=== PATIENT | female | born 1960 | race Caucasian/White ===

== ENCOUNTER 2019-09-15 11:11 | Inpatient (IN) | payer MEDICAID ==
[~2019-09-15] VITALS: Ht 175.3 cm; Wt 76.7 kg
--- NOTE | 2019-09-15 11:31 | NUR ---
Pt pushed from triage to room in wheelchair.
--- NOTE | 2019-09-15 11:48 | NUR ---
Pt transported [facility] from ED. NADN. No needs expressed.
--- NOTE | 2019-09-15 11:53 | NUR ---
LATE NOTE ENTRY DUE TO PT CARE. Pt presents to ED with c/o left hip pain from known fracture that was diagnosed on 08/20/19 at [facility] after pt fell off curb at a [employer] and had a mechanical GLF. Pt states, "I didn't have health insurance until September 15. I have been using this walker I got five days ago and been taking Ibuprofen for the pain. I am scheduled for surgery on September 29 and I want to see how it is doing now." Pt placed in yellow gown, yellow socks, fall risk braclet, and fall risk sign at doorway. Bedrails up x 2, call light within reach. Pt connected to NIBP cuff and continous pulse ox monitor. NADN. No other needs expressed at this time.
--- NOTE | 2019-09-15 11:58 | NUR ---
Pt back to room from X-ray at this time.
--- NOTE | 2019-09-15 12:48 | NUR ---
dr duarte spoke with dr trevino with ortho
[2019-09-15] MEDS ORDERED: SODIUM CHLORIDE FLUSH 10ML SYR IVF ONE (13:00)
[2019-09-15] MEDS ORDERED: PRO AIR (13:16)
[2019-09-15 13:26] LABS: BASOPHILS # (AUTO) 0.05 x10^3/uL (0-0.1); BASOPHILS % (AUTO) 1 % (0-1); EOSINOPHILS # (AUTO) 0.36 x10^3/uL (0-0.4); EOSINOPHILS % (AUTO) 5 % (1-7); LYMPHOCYTES # (AUTO) 1.93 x10^3/uL (1-3.4); LYMPHOCYTES % (AUTO) 27 % (22-44); MD NO; MEAN CORPUSCULAR HEMOGLOBIN 29.3 pg (27.0-34.8); MEAN CORPUSCULAR HGB CONC 33.2 g/dL (32.4-35.8); MEAN CORPUSCULAR VOLUME 88.2 fL (80-100); MEAN PLATELET VOLUME 8.3 fL (7.4-10.4); MONOCYTES # (AUTO) 0.34 x10^3/uL (0.2-0.8); MONOCYTES % (AUTO) 5 % (2-9); NEUTROPHILS % (AUTO) 62 % (42-75); PLATELET COUNT 269 x10^3/uL (130-400); RED BLOOD COUNT 5.12 x10^6/uL (3.82-5.3); RED CELL DISTRIBUTION WIDTH 12.3 % (9.6-15.2)
[2019-09-15 13:37] LABS: ALBUMIN 3.7 g/dL (3.4-5.0); ANION GAP 3 mmol/L (5-15); CALCIUM 9.4 mg/dL (8.5-10.1); CHLORIDE 108 mmol/L (98-107); CREATININE 0.62 mg/dL (0.55-1.02); INTERNATIONAL NORMALIZED RATIO 0.99 (0.93-1.1); PROTHROMBIN TIME 10.4 Seconds (9.6-11.5)
[2019-09-15] MEDS ORDERED: SODIUM CHLORIDE FLUSH 10ML SYR IVF PRN (15:00)
[2019-09-15] MEDS ORDERED: ACETAMINOPHEN 325 MG TABLET PO PRN (15:00)
[2019-09-15] MEDS ORDERED: IBUPROFEN 600 MG TABLET PO PRN (15:00)
[2019-09-15] MEDS ORDERED: LIDODERM 5% PATCH TD PRN (15:00)
[2019-09-15] MEDS ORDERED: ONDANSETRON 2MG/ML, 2ML IVPush PRN (15:00)
[2019-09-15] MEDS ORDERED: ONDANSETRON ODT 4 MG PO PRN (15:00)
--- NOTE | 2019-09-15 15:20 | NUR ---
Provided report to LIZET Gutierrez. All questions answered. Pt ready to transfer to floor from ED. NADN. No needs expressed.
[2019-09-15 15:45] VITALS: BP 127/73
[2019-09-15] MEDS ORDERED: ALBUTEROL SULFATE 2.5 MG/3 ML NPPB PRN (16:00)
[2019-09-15] MEDS: INSULIN LISPRO 100 UNITS/ML, PEN SQ-INSULIN SCH ×2 (16:00→20:32)
--- NOTE | 2019-09-15 16:23 | NUR ---
Pt transfered to floor from ED and left with all personal belongings.
[2019-09-15] MEDS: HYDROcodone/APAP 5/325 TABLET PO PRN ×2 (16:43→21:44)
[2019-09-15] MEDS: NICOTINE 14MG/24 HR PATCH.TD24 TD SCH (16:43)
[2019-09-15 17:21] LABS: MICROSCOPIC NOT IND
[2019-09-15 17:29] LABS: CULTURE INDICATED? NO
[2019-09-15 17:30] LABS: AMPHETAMINE SCREEN, URINE Negative (Negative); BARBITURATE SCREEN, URINE Negative (Negative); BENZODIAZEPINE SCREEN, URINE Negative (Negative); CANNABINOID SCREEN, URINE Negative (Negative); COCAINE SCREEN, URINE Negative (Negative); METHADONE SCREEN, URINE Negative (Negative); OPIATE SCREEN, URINE Negative (Negative)
[2019-09-15 19:42] VITALS: BP 121/69
[2019-09-16 01:15] VITALS: BP 138/86
[2019-09-16] MEDS: HYDROcodone/APAP 5/325 TABLET PO PRN ×3 (02:01→13:00)
[2019-09-16 05:03] LABS: BASOPHILS # (AUTO) 0.05 x10^3/uL (0-0.1); BASOPHILS % (AUTO) 1 % (0-1); EOSINOPHILS # (AUTO) 0.44 x10^3/uL (0-0.4); EOSINOPHILS % (AUTO) 7 % (1-7); LYMPHOCYTES # (AUTO) 2.61 x10^3/uL (1-3.4); LYMPHOCYTES % (AUTO) 41 % (22-44); MD NO; MEAN CORPUSCULAR HEMOGLOBIN 29.6 pg (27.0-34.8); MEAN CORPUSCULAR HGB CONC 33.1 g/dL (32.4-35.8); MEAN CORPUSCULAR VOLUME 89.4 fL (80-100); MEAN PLATELET VOLUME 8.4 fL (7.4-10.4); MONOCYTES # (AUTO) 0.46 x10^3/uL (0.2-0.8); MONOCYTES % (AUTO) 7 % (2-9); NEUTROPHILS # (AUTO) 2.85 x10^3/uL (1.8-6.8); NEUTROPHILS % (AUTO) 45 % (42-75); PLATELET COUNT 256 x10^3/uL (130-400); RED BLOOD COUNT 4.86 x10^6/uL (3.82-5.3); RED CELL DISTRIBUTION WIDTH 12.6 % (9.6-15.2)
[2019-09-16 05:16] LABS: ANION GAP 7 mmol/L (5-15); CHLORIDE 105 mmol/L (98-107); CREATININE 0.67 mg/dL (0.55-1.02)
[2019-09-16 06:53] VITALS: BP 124/72
[2019-09-16] MEDS: INSULIN LISPRO 100 UNITS/ML, PEN SQ-INSULIN SCH ×4 (07:00→21:00)
[2019-09-16 13:08] VITALS: BP 113/64
[2019-09-16] MEDS: NICOTINE 14MG/24 HR PATCH.TD24 TD SCH (14:57)
[2019-09-16] MEDS ORDERED: PROPOFOL 50 ML ONE (17:38)
[2019-09-16] MEDS ORDERED: FENTANYL PF 250 MCG/5ML ONE (17:40)
[2019-09-16] MEDS ORDERED: MIDAZOLAM 1 MG/ML, 2ML ONE (17:41)
[2019-09-16] MEDS ORDERED: SUCCINYLCHOLINE 20 MG/ML, 10ML ONE (18:35)
[2019-09-16] MEDS ORDERED: DEXAMETHASONE 4 MG/ML, 1ML ONE (18:35)
[2019-09-16] MEDS ORDERED: NEOSTIGMINE 1 MG/ML, 10ML ONE (18:35)
[2019-09-16] MEDS ORDERED: GLYCOPYRROLATE 0.2MG/1ML, 5ML ONE (18:35)
[2019-09-16] MEDS ORDERED: ROCURONIUM 10 MG/ML,10ML ONE (18:35)
[2019-09-16] MEDS ORDERED: CEFAZOLIN 1,000 MG ONE (18:35)
[2019-09-16] MEDS ORDERED: ONDANSETRON 2MG/ML, 2ML ONE (18:35)
[2019-09-16] MEDS ORDERED: FENTANYL PF 100 MCG/2ML ONE (19:17)
[2019-09-16] MEDS ORDERED: ALBUTEROL/IPRATROPIUM 2.5MG/0.5MG, 3 ML ONE (19:17)
[2019-09-16] MEDS: FENTANYL PF 100 MCG/2ML IV PRN ×3 (19:24→20:10)
[2019-09-16] MEDS ORDERED: OXYcodone 5 MG/5 ML ORAL.SOL UDC ONE (19:25)
[2019-09-16] MEDS ORDERED: HYDROmorphone 2 MG/ML, 1ML IVPush PRN (19:30)
[2019-09-16] MEDS ORDERED: METOCLOPRAMIDE 5 MG/ML, 2ML IV PRN (19:30)
[2019-09-16] MEDS ORDERED: hydrALAzine 20 MG/ML, 1ML IV PRN (19:30)
[2019-09-16] MEDS ORDERED: MEPERIDINE/PF 25MG/ML,1ML IVPush PRN (19:30)
[2019-09-16] MEDS ORDERED: DIAZEPAM 5 MG/ML, 2ML IVPush PRN (19:30)
[2019-09-16] MEDS ORDERED: ONDANSETRON 2MG/ML, 2ML IV PRN (19:30)
[2019-09-16] MEDS ORDERED: LABETALOL 5MG/ML, 20ML IV PRN (19:30)
[2019-09-16] MEDS ORDERED: OXYcodone 5 MG/5 ML ORAL.SOL UDC PO PRN (19:30)
[2019-09-16] MEDS ORDERED: LORazepam 2 MG/ML, 1ML IVPush PRN (19:30)
[2019-09-16 20:35] VITALS: BP 136/62
[2019-09-16] MEDS: KETOROLAC 30 MG/1 ML IV SCH (21:58)
[2019-09-17 00:15] VITALS: BP 120/69
[2019-09-17] MEDS: HYDROcodone/APAP 5/325 TABLET PO PRN ×4 (02:15→20:53)
[2019-09-17] MEDS: CEFAZOLIN PMX 1GM/50ML 50 ML IVPB SCH ×3 (05:02→20:03)
[2019-09-17] MEDS: KETOROLAC 30 MG/1 ML IV SCH ×2 (05:05→12:07)
[2019-09-17] MEDS: INSULIN LISPRO 100 UNITS/ML, PEN SQ-INSULIN SCH ×4 (07:00→20:19)
[2019-09-17 08:15] VITALS: BP 110/68
[2019-09-17] MEDS: ENOXAPARIN 40 MG/0.4 ML SQ SCH (09:54)
[2019-09-17] MEDS ORDERED: POLYETHYLENE GLYCOL 17 GM PACKET PO PRN (10:00)
[2019-09-17] MEDS: NICOTINE 14MG/24 HR PATCH.TD24 TD SCH (12:08)
[2019-09-17 12:10] VITALS: BP 125/70
[2019-09-17] MEDS ORDERED: MAGNESIUM HYDROXIDE 8%, 30ML UDC PO PRN (17:00)
[2019-09-17 18:44] VITALS: BP 120/48
[2019-09-18 00:43] VITALS: BP 128/69
[2019-09-18] MEDS: HYDROcodone/APAP 5/325 TABLET PO PRN ×2 (01:41→11:38)
[2019-09-18 05:05] LABS: BASOPHILS # (AUTO) 0.04 x10^3/uL (0-0.1); BASOPHILS % (AUTO) 1 % (0-1); EOSINOPHILS # (AUTO) 0.19 x10^3/uL (0-0.4); EOSINOPHILS % (AUTO) 3 % (1-7); LYMPHOCYTES % (AUTO) 39 % (22-44); MD NO; MEAN CORPUSCULAR HEMOGLOBIN 29.2 pg (27.0-34.8); MEAN CORPUSCULAR HGB CONC 33.1 g/dL (32.4-35.8); MEAN CORPUSCULAR VOLUME 88.4 fL (80-100); MEAN PLATELET VOLUME 8.5 fL (7.4-10.4); MONOCYTES % (AUTO) 7 % (2-9); NEUTROPHILS # (AUTO) 3.79 x10^3/uL (1.8-6.8); NEUTROPHILS % (AUTO) 51 % (42-75); PLATELET COUNT 229 x10^3/uL (130-400); RED BLOOD COUNT 4.56 x10^6/uL (3.82-5.3); RED CELL DISTRIBUTION WIDTH 12.2 % (9.6-15.2)
[2019-09-18 05:15] LABS: CALCIUM 8.8 mg/dL (8.5-10.1); CHLORIDE 105 mmol/L (98-107)
[2019-09-18 05:19] LABS: ANION GAP 4 mmol/L (5-15); CREATININE 0.81 mg/dL (0.55-1.02)
[2019-09-18] MEDS: INSULIN LISPRO 100 UNITS/ML, PEN SQ-INSULIN SCH ×2 (07:00→11:00)
[2019-09-18 07:17] VITALS: BP 116/68
[2019-09-18] MEDS: ENOXAPARIN 40 MG/0.4 ML SQ SCH (08:08)
[2019-09-18] MEDS ORDERED: KETOROLAC 30 MG/1 ML IVPush ONE (08:30)
[2019-09-18] MEDS ORDERED: HYDR-3237 PO (10:46)
[2019-09-18] MEDS: NICOTINE 14MG/24 HR PATCH.TD24 TD SCH (11:38)
[2019-09-18] MEDS ORDERED: ASPI-650 PO (11:46)
[2019-09-18] MEDS ORDERED: FLU VACC QS2019-20 36MOS UP/PF 0.5 ML IM-VACC ONE (12:30)
[2019-09-18] MEDS ORDERED: ASPI-515 PO (12:38)
[2019-09-18] MEDS ORDERED: HYDR-3240 PO (12:40)
== END 2019-09-18 13:00 | disposition home or self-care (01) | DRG 482 ==
LOC: ED 13:50 → EDIP 14:45 → 4NE 15:41 → DCLOUNGE 09-18 12:44
PROVIDERS: ADMIT Internal Medicine; ATTEND Hospitalist
PROC: 0QS734Z Reposition Left Upper Femur with Internal Fixation Device, Percutaneous Approach (ICD-10-PCS; principal; 2019-09-16 17:30)
DX: S72.012A Unspecified intracapsular fracture of left femur, initial encounter for closed fracture (principal); E11.9 Type 2 diabetes mellitus without complications; I10 Essential (primary) hypertension; K21.9 Gastro-esophageal reflux disease without esophagitis; J44.9 Chronic obstructive pulmonary disease, unspecified; W18.30XA Fall on same level, unspecified, initial encounter; Y93.89 Activity, other specified; Y92.89 Other specified places as the place of occurrence of the external cause; Y99.8 Other external cause status
CPT/HCPCS: 36415; 71045; 76000; 80048; 80307; 81003; 82040; 82962; 83036; 84443; 85025; 85610; 85730; 90686; 93005; 94640; 99285; C1713; G0378; J0690; J1100; J1650; J1885; J2250; J2405; J2704; J2710; J3010; J0330

== ENCOUNTER 2019-09-24 06:42 | Emergency (ER) | payer MEDICAID ==
[~2019-09-24] VITALS: Ht 175.3 cm; Wt 76.7 kg
[~2019-09-24 06:42] MED LIST: ASPI-515 PO; ASPI-650 PO; HYDR-3237 PO; HYDR-3240 PO; PRO AIR
[2019-09-24 07:21] LABS: BASOPHILS # (AUTO) 0.01 x10^3/uL (0-0.1); BASOPHILS % (AUTO) 0 % (0-1); EOSINOPHILS # (AUTO) 0.21 x10^3/uL (0-0.4); EOSINOPHILS % (AUTO) 5 % (1-7); LYMPHOCYTES # (AUTO) 0.67 x10^3/uL (1-3.4); LYMPHOCYTES % (AUTO) 16 % (22-44); MD NO; MEAN CORPUSCULAR HEMOGLOBIN 29.5 pg (27.0-34.8); MEAN CORPUSCULAR HGB CONC 33.7 g/dL (32.4-35.8); MEAN CORPUSCULAR VOLUME 87.3 fL (80-100); MEAN PLATELET VOLUME 7.9 fL (7.4-10.4); MONOCYTES # (AUTO) 0.21 x10^3/uL (0.2-0.8); MONOCYTES % (AUTO) 5 % (2-9); NEUTROPHILS # (AUTO) 3.21 x10^3/uL (1.8-6.8); NEUTROPHILS % (AUTO) 75 % (42-75); PLATELET COUNT 218 x10^3/uL (130-400); RED BLOOD COUNT 4.94 x10^6/uL (3.82-5.3); RED CELL DISTRIBUTION WIDTH 12.4 % (9.6-15.2)
[2019-09-24] MEDS ORDERED: BENZONATATE 100 MG CAPSULE PO ONE (07:30)
[2019-09-24 07:32] LABS: ALBUMIN 3.3 g/dL (3.4-5.0); ANION GAP 5 mmol/L (5-15); CALCIUM 8.8 mg/dL (8.5-10.1); CHLORIDE 106 mmol/L (98-107); CREATININE 0.58 mg/dL (0.55-1.02)
[2019-09-24 07:36] LABS: TROPONIN I < 0.015 ng/mL (0.000-0.045)
[2019-09-24] MEDS ORDERED: BENZONATATE 100 MG CAPSULE ONE (07:55)
--- NOTE | 2019-09-24 07:57 | NUR ---
Medicated per emar VSS on awake overnight monitor No coughing noted since time of rooming
[2019-09-24] MEDS ORDERED: METF10007 PO (08:01)
[2019-09-24 08:05] LABS: RAPID INFLUENZA A Negative (Negative); RAPID INFLUENZA B Negative (Negative)
[2019-09-24 08:22] VITALS: BP 123/63
--- NOTE | 2019-09-24 08:40 | NUR ---
vss on registered nurse cardiac Tolerated po challenge of liquids/solids Lungs sounds remain deminished but Patient reports "I feel a little better. as long as you send me with some prescriptions for a new inhaler and more steroids I should get through this."
== END 2019-09-24 09:06 | disposition home or self-care (01) ==
LOC: ED 08:11
DX: J44.1 Chronic obstructive pulmonary disease with (acute) exacerbation (principal); J06.9 Acute upper respiratory infection, unspecified; F17.200 Nicotine dependence, unspecified, uncomplicated
CPT/HCPCS: 36415; 71045; 80048; 82040; 84484; 85025; 87400; 93005; 99284; J7512

== ENCOUNTER 2019-10-11 11:57 | Emergency (ER) | payer MEDICAID ==
[~2019-10-11] VITALS: Ht 175.3 cm; Wt 73.0 kg
[~2019-10-11 11:57] MED LIST changes: +METF10007 PO
[2019-10-11 12:10] VITALS: BP 165/66
[2019-10-11] MEDS ORDERED: NEOSPORIN OINT. PKT 1 PACKET ONE (13:04)
== END 2019-10-11 13:33 | disposition home or self-care (01) ==
LOC: ED 13:21
DX: L03.114 Cellulitis of left upper limb (principal); B35.3 Tinea pedis; E11.9 Type 2 diabetes mellitus without complications
CPT/HCPCS: 99283

== ENCOUNTER 2020-02-09 13:47 | Inpatient (IN) | payer MEDICAID ==
[~2020-02-09] VITALS: Ht 175.3 cm; Wt 80.6 kg
--- NOTE | 2020-02-09 14:35 | NUR ---
EDUCATIONAL THERAPIST: PT TO ROOM FROM [facility].
[2020-02-09] MEDS ORDERED: CEFTRIAXONE PMX 1GM/50ML 50 ML ONE (15:24)
[2020-02-09] MEDS ORDERED: SODIUM CHLORIDE FLUSH 10ML SYR IVF ONE ×2 (15:30→17:30)
[2020-02-09] MEDS ORDERED: CEFTRIAXONE 1,000 MG in SODIUM CHLORIDE 0.9% 50 ML IVPB ONE (15:30)
[2020-02-09] MEDS ORDERED: CEFTRIAXONE PMX 1GM/50ML 50 ML IVPB ONE (15:30)
[2020-02-09] MEDS ORDERED: ONDANSETRON 2MG/ML, 2ML ONE (15:37)
[2020-02-09] MEDS ORDERED: HYDROmorphone 1 MG/ML, 1ML INJ ONE (15:37)
[2020-02-09 15:52] LABS: ALBUMIN 3.2 g/dL (3.4-5.0); ANION GAP 7 mmol/L (5-15); CALCIUM 9.2 mg/dL (8.5-10.1); CHLORIDE 101 mmol/L (98-107); CREATININE 0.69 mg/dL (0.55-1.02)
--- NOTE | 2020-02-09 16:00 | NUR ---
PT RESTING WITH EYES CLOSED. MONITOR IN PLACE.
[2020-02-09 16:02] LABS: BASOPHILS # (AUTO) 0.04 x10^3/uL (0-0.1); BASOPHILS % (AUTO) 0 % (0-1); EOSINOPHILS # (AUTO) 0.14 x10^3/uL (0-0.4); EOSINOPHILS % (AUTO) 1 % (1-7); LYMPHOCYTES # (AUTO) 1.48 x10^3/uL (1-3.4); LYMPHOCYTES % (AUTO) 12 % (22-44); MD NO; MEAN CORPUSCULAR HGB CONC 33.6 g/dL (32.4-35.8); MEAN CORPUSCULAR VOLUME 86.2 fL (80-100); MEAN PLATELET VOLUME 8.7 fL (7.4-10.4); MONOCYTES # (AUTO) 0.99 x10^3/uL (0.2-0.8); MONOCYTES % (AUTO) 8 % (2-9); NEUTROPHILS # (AUTO) 9.68 x10^3/uL (1.8-6.8); NEUTROPHILS % (AUTO) 79 % (42-75); PLATELET COUNT 260 x10^3/uL (130-400); RED BLOOD COUNT 4.48 x10^6/uL (3.82-5.3)
[2020-02-09] MEDS ORDERED: OMNIPAQUE 350 MG/ML, 100ML BOTTLE ONE (16:52)
[2020-02-09] MEDS ORDERED: SODIUM CHLORIDE FLUSH 10ML SYR IVF PRN (17:30)
[2020-02-09] MEDS ORDERED: VANCOMYCIN PER PHARMACY MC PRN (18:00)
[2020-02-09] MEDS ORDERED: ONDANSETRON ODT 4 MG PO PRN (18:00)
[2020-02-09] MEDS ORDERED: POLYETHYLENE GLYCOL 17 GM PACKET PO PRN (18:00)
[2020-02-09] MEDS ORDERED: BISACODYL 10 MG SUPP PR PRN (18:00)
[2020-02-09] MEDS: HEPARIN 5,000 UNITS/ML, 1ML SQ SCH (18:00)
[2020-02-09] MEDS ORDERED: PHARMACOKINETIC CONSULTATION MC ONE (19:30)
[2020-02-09] MEDS ORDERED: PHARMACOKINETIC MONITORING MC PRN (19:30)
[2020-02-09] MEDS: ASPIRIN 81 MG TABLET EC PO SCH (20:31)
[2020-02-09] MEDS: NICOTINE 21 MG/24 HR PATCH.TD24 TD SCH (20:31)
[2020-02-09] MEDS: PIPERACILLIN/TAZO/PMX 3.375GM 50 ML IV SCH (20:31)
[2020-02-09] MEDS: metFORMIN 500 MG TABLET PO SCH (20:31)
[2020-02-09 20:40] VITALS: BP 127/64
[2020-02-09] MEDS: VANCOMYCIN 1,300 MG in SODIUM CHLORIDE 0.9% 250 ML IV SCH (21:14)
[2020-02-09] MEDS: KETOROLAC 30 MG/1 ML IVPush PRN (22:39)
[2020-02-09] MEDS: NS + 20MEQ KCL 1,000 ML IV SCH (23:48)
[2020-02-10 00:21] VITALS: BP 136/79
[2020-02-10] MEDS: HEPARIN 5,000 UNITS/ML, 1ML SQ SCH ×3 (02:00→17:25)
[2020-02-10] MEDS: PIPERACILLIN/TAZO/PMX 3.375GM 50 ML IV SCH ×4 (02:00→20:30)
[2020-02-10 05:42] LABS: BASOPHILS # (AUTO) 0.03 x10^3/uL (0-0.1); BASOPHILS % (AUTO) 0 % (0-1); EOSINOPHILS # (AUTO) 0.26 x10^3/uL (0-0.4); EOSINOPHILS % (AUTO) 2 % (1-7); LYMPHOCYTES # (AUTO) 1.39 x10^3/uL (1-3.4); LYMPHOCYTES % (AUTO) 12 % (22-44); MD NO; MEAN CORPUSCULAR HEMOGLOBIN 28.6 pg (27.0-34.8); MEAN CORPUSCULAR HGB CONC 32.9 g/dL (32.4-35.8); MEAN CORPUSCULAR VOLUME 86.8 fL (80-100); MEAN PLATELET VOLUME 8.7 fL (7.4-10.4); MONOCYTES # (AUTO) 0.94 x10^3/uL (0.2-0.8); MONOCYTES % (AUTO) 8 % (2-9); NEUTROPHILS # (AUTO) 8.73 x10^3/uL (1.8-6.8); NEUTROPHILS % (AUTO) 77 % (42-75); PLATELET COUNT 233 x10^3/uL (130-400); RED BLOOD COUNT 3.97 x10^6/uL (3.82-5.3); RED CELL DISTRIBUTION WIDTH 12.7 % (9.6-15.2)
[2020-02-10 05:51] LABS: ANION GAP 9 mmol/L (5-15); CALCIUM 8.6 mg/dL (8.5-10.1); CHLORIDE 102 mmol/L (98-107)
[2020-02-10] MEDS: KETOROLAC 30 MG/1 ML IVPush PRN ×3 (06:16→21:48)
[2020-02-10] MEDS: SENNA/DOCUSATE TABLET PO SCH (07:58)
[2020-02-10] MEDS: metFORMIN 500 MG TABLET PO SCH ×2 (07:58→17:23)
[2020-02-10] MEDS: ASPIRIN 81 MG TABLET EC PO SCH ×2 (07:58→20:30)
[2020-02-10 09:22] VITALS: BP 139/73
[2020-02-10] MEDS: NS + 20MEQ KCL 1,000 ML IV SCH ×2 (12:00→19:42)
[2020-02-10 13:35] VITALS: BP 122/75
[2020-02-10 13:42] LABS: AMPHETAMINE SCREEN, URINE Positive (Negative); BARBITURATE SCREEN, URINE Negative (Negative); BENZODIAZEPINE SCREEN, URINE Negative (Negative); CANNABINOID SCREEN, URINE Negative (Negative); COCAINE SCREEN, URINE Negative (Negative); METHADONE SCREEN, URINE Negative (Negative); OPIATE SCREEN, URINE Negative (Negative)
[2020-02-10] MEDS: VANCOMYCIN 1,300 MG in SODIUM CHLORIDE 0.9% 250 ML IV SCH (15:21)
[2020-02-10] MEDS: ACETAMINOPHEN 325 MG TABLET PO PRN ×2 (17:23→23:19)
[2020-02-10] MEDS: NICOTINE 21 MG/24 HR PATCH.TD24 TD SCH (20:30)
[2020-02-10 20:33] VITALS: BP 107/55
[2020-02-11] MEDS: HEPARIN 5,000 UNITS/ML, 1ML SQ SCH ×3 (01:29→17:07)
[2020-02-11] MEDS: PIPERACILLIN/TAZO/PMX 3.375GM 50 ML IV SCH ×4 (02:34→20:37)
[2020-02-11] MEDS: KETOROLAC 30 MG/1 ML IVPush PRN (03:10)
[2020-02-11 04:27] LABS: BASOPHILS # (AUTO) 0.04 x10^3/uL (0-0.1); BASOPHILS % (AUTO) 0 % (0-1); EOSINOPHILS # (AUTO) 0.31 x10^3/uL (0-0.4); EOSINOPHILS % (AUTO) 3 % (1-7); LYMPHOCYTES # (AUTO) 1.99 x10^3/uL (1-3.4); LYMPHOCYTES % (AUTO) 21 % (22-44); MD NO; MEAN CORPUSCULAR HEMOGLOBIN 28.7 pg (27.0-34.8); MEAN CORPUSCULAR VOLUME 86.8 fL (80-100); MEAN PLATELET VOLUME 8.6 fL (7.4-10.4); MONOCYTES # (AUTO) 0.69 x10^3/uL (0.2-0.8); MONOCYTES % (AUTO) 7 % (2-9); NEUTROPHILS # (AUTO) 6.39 x10^3/uL (1.8-6.8); NEUTROPHILS % (AUTO) 68 % (42-75); PLATELET COUNT 268 x10^3/uL (130-400); RED CELL DISTRIBUTION WIDTH 13.1 % (9.6-15.2)
[2020-02-11 04:34] LABS: ANION GAP 7 mmol/L (5-15); CALCIUM 8.6 mg/dL (8.5-10.1); CHLORIDE 109 mmol/L (98-107); CREATININE 0.66 mg/dL (0.55-1.02)
[2020-02-11 05:01] LABS: HCT (SEDRATE) 35.6 % (34.6-47.8)
[2020-02-11] MEDS: NS + 20MEQ KCL 1,000 ML IV SCH ×2 (05:14→16:51)
[2020-02-11] MEDS: metFORMIN 500 MG TABLET PO SCH ×2 (07:50→17:06)
[2020-02-11] MEDS: SENNA/DOCUSATE TABLET PO SCH (07:51)
[2020-02-11] MEDS: ASPIRIN 81 MG TABLET EC PO SCH ×2 (07:51→20:37)
[2020-02-11 08:05] VITALS: BP 132/72
[2020-02-11] MEDS: VANCOMYCIN 1,300 MG in SODIUM CHLORIDE 0.9% 250 ML IV SCH (09:37)
[2020-02-11] MEDS ORDERED: FENTANYL PF 100 MCG/2ML ONE ×4 (12:11→15:07)
[2020-02-11] MEDS ORDERED: MUPIROCIN OINT 2%, 22GM ONE (12:43)
[2020-02-11] MEDS ORDERED: CHLORHEXIDINE 15 ML UDC ONE (12:43)
[2020-02-11] MEDS ORDERED: LIDOCAINE 1%-EPI 1:100K, 20ML ONE (12:44)
[2020-02-11] MEDS ORDERED: CHLORHEXIDINE 15 ML UDC MM STA (12:53)
[2020-02-11] MEDS ORDERED: ROCURONIUM 10 MG/ML,10ML ONE (13:27)
[2020-02-11] MEDS ORDERED: SUCCINYLCHOLINE 20 MG/ML, 10ML ONE (13:27)
[2020-02-11] MEDS ORDERED: ONDANSETRON 2MG/ML, 2ML ONE (13:58)
[2020-02-11] MEDS ORDERED: PROPOFOL 10 MG/ML, 20ML ONE (13:58)
[2020-02-11] MEDS ORDERED: DEXAMETHASONE 4 MG/ML, 1ML ONE (13:58)
[2020-02-11] MEDS ORDERED: LIDOCAINE-MPF 2% ,5ML ONE (13:58)
[2020-02-11] MEDS ORDERED: METOPROLOL 1 MG/ML, 5ML IV PRN (14:30)
[2020-02-11] MEDS ORDERED: PROMETHAZINE 25 MG/ML, 1ML IV PRN (14:30)
[2020-02-11] MEDS ORDERED: FENTANYL PF 100 MCG/2ML IV PRN (14:30)
[2020-02-11] MEDS ORDERED: hydrALAzine 20 MG/ML, 1ML IV PRN (14:30)
[2020-02-11] MEDS ORDERED: MEPERIDINE/PF 25MG/ML,1ML IVPush PRN (14:30)
[2020-02-11] MEDS ORDERED: HYDROmorphone 2 MG/ML, 1ML IVPush PRN (14:30)
[2020-02-11] MEDS ORDERED: ALBUTEROL SULFATE 2.5 MG/3 ML NPPB PRN (14:30)
[2020-02-11] MEDS ORDERED: ACETAMINOPHEN 325 MG TABLET PO PRN (14:30)
[2020-02-11] MEDS ORDERED: MIDAZOLAM 1 MG/ML, 2ML ONE (14:40)
[2020-02-11] MEDS ORDERED: MIDAZOLAM 1 MG/ML, 5ML ONE (15:07)
[2020-02-11] MEDS ORDERED: NEOSPORIN OINT, 15GM ONE (15:08)
[2020-02-11] MEDS: MIDAZOLAM 1 MG/ML, 2ML IV PRN ×2 (15:10→15:20)
[2020-02-11] MEDS ORDERED: OXYcodone 5 MG/5 ML ORAL.SOL UDC ONE (15:35)
[2020-02-11 16:19] VITALS: BP 157/84
[2020-02-11 18:27] VITALS: BP 143/83
[2020-02-11] MEDS: NICOTINE 21 MG/24 HR PATCH.TD24 TD SCH (20:37)
[2020-02-11] MEDS: OXYcodone 5 MG/5 ML ORAL.SOL UDC PO PRN (20:51)
[2020-02-12] MEDS: KETOROLAC 30 MG/1 ML IVPush PRN ×3 (00:06→21:06)
[2020-02-12] MEDS: NS + 20MEQ KCL 1,000 ML IV SCH (00:06)
[2020-02-12 01:02] VITALS: BP 131/68
[2020-02-12] MEDS: HEPARIN 5,000 UNITS/ML, 1ML SQ SCH ×3 (02:03→16:42)
[2020-02-12] MEDS: PIPERACILLIN/TAZO/PMX 3.375GM 50 ML IV SCH ×4 (02:38→21:07)
[2020-02-12] MEDS: VANCOMYCIN 1,300 MG in SODIUM CHLORIDE 0.9% 250 ML IV SCH (03:36)
[2020-02-12 03:57] LABS: BASOPHILS # (AUTO) 0.03 x10^3/uL (0-0.1); BASOPHILS % (AUTO) 0 % (0-1); EOSINOPHILS # (AUTO) 0.08 x10^3/uL (0-0.4); EOSINOPHILS % (AUTO) 1 % (1-7); LYMPHOCYTES # (AUTO) 1.92 x10^3/uL (1-3.4); LYMPHOCYTES % (AUTO) 20 % (22-44); MD NO; MEAN CORPUSCULAR HGB CONC 33.3 g/dL (32.4-35.8); MEAN CORPUSCULAR VOLUME 87.3 fL (80-100); MEAN PLATELET VOLUME 9.1 fL (7.4-10.4); MONOCYTES # (AUTO) 0.57 x10^3/uL (0.2-0.8); MONOCYTES % (AUTO) 6 % (2-9); NEUTROPHILS # (AUTO) 6.93 x10^3/uL (1.8-6.8); NEUTROPHILS % (AUTO) 73 % (42-75); PLATELET COUNT 285 x10^3/uL (130-400); RED CELL DISTRIBUTION WIDTH 12.7 % (9.6-15.2)
[2020-02-12 04:07] LABS: ANION GAP 7 mmol/L (5-15); CALCIUM 8.6 mg/dL (8.5-10.1); CHLORIDE 106 mmol/L (98-107); CREATININE 0.63 mg/dL (0.55-1.02)
[2020-02-12 04:08] LABS: VANCOMYCIN,TROUGH 5.9 mcg/mL (5.0-10.0)
[2020-02-12 07:28] VITALS: BP 117/64
[2020-02-12] MEDS: ASPIRIN 81 MG TABLET EC PO SCH ×2 (08:22→21:07)
[2020-02-12] MEDS: NEOSPORIN OINT, 15GM TP SCH ×2 (08:22→22:21)
[2020-02-12] MEDS: metFORMIN 500 MG TABLET PO SCH ×2 (08:22→16:42)
[2020-02-12] MEDS: SENNA/DOCUSATE TABLET PO SCH (08:22)
[2020-02-12] MEDS: MUPIROCIN OINT 2%, 22GM TP SCH ×2 (12:03→16:42)
[2020-02-12 14:16] VITALS: BP 119/67
[2020-02-12] MEDS: VANCOMYCIN 1,600 MG in SODIUM CHLORIDE 0.9% 250 ML IV SCH (15:11)
[2020-02-12] MEDS ORDERED: NS + 20MEQ KCL 1,000 ML IV SCH (17:35)
[2020-02-12 18:14] VITALS: BP 169/83
[2020-02-12] MEDS: NICOTINE 21 MG/24 HR PATCH.TD24 TD SCH (21:07)
[2020-02-13] MEDS: PIPERACILLIN/TAZO/PMX 3.375GM 50 ML IV SCH ×2 (02:03→08:12)
[2020-02-13] MEDS: HEPARIN 5,000 UNITS/ML, 1ML SQ SCH ×2 (02:07→09:20)
[2020-02-13 02:19] VITALS: BP 146/73
[2020-02-13] MEDS: VANCOMYCIN 1,600 MG in SODIUM CHLORIDE 0.9% 250 ML IV SCH (03:10)
[2020-02-13] MEDS: MUPIROCIN OINT 2%, 22GM TP SCH (05:07)
[2020-02-13] MEDS: KETOROLAC 30 MG/1 ML IVPush PRN (05:17)
[2020-02-13 05:45] LABS: BASOPHILS # (AUTO) 0.03 x10^3/uL (0-0.1); BASOPHILS % (AUTO) 0 % (0-1); EOSINOPHILS # (AUTO) 0.27 x10^3/uL (0-0.4); EOSINOPHILS % (AUTO) 3 % (1-7); LYMPHOCYTES # (AUTO) 2.49 x10^3/uL (1-3.4); LYMPHOCYTES % (AUTO) 31 % (22-44); MD NO; MEAN CORPUSCULAR HEMOGLOBIN 28.6 pg (27.0-34.8); MEAN CORPUSCULAR HGB CONC 32.9 g/dL (32.4-35.8); MEAN CORPUSCULAR VOLUME 86.9 fL (80-100); MEAN PLATELET VOLUME 8.6 fL (7.4-10.4); MONOCYTES # (AUTO) 0.37 x10^3/uL (0.2-0.8); MONOCYTES % (AUTO) 5 % (2-9); NEUTROPHILS # (AUTO) 4.92 x10^3/uL (1.8-6.8); NEUTROPHILS % (AUTO) 61 % (42-75); PLATELET COUNT 316 x10^3/uL (130-400); RED BLOOD COUNT 4.25 x10^6/uL (3.82-5.3); RED CELL DISTRIBUTION WIDTH 13.1 % (9.6-15.2)
[2020-02-13 05:51] LABS: ANION GAP 7 mmol/L (5-15); CALCIUM 8.6 mg/dL (8.5-10.1); CHLORIDE 109 mmol/L (98-107); CREATININE 0.65 mg/dL (0.55-1.02)
[2020-02-13] MEDS: ASPIRIN 81 MG TABLET EC PO SCH (08:12)
[2020-02-13] MEDS: OXYcodone 5 MG/5 ML ORAL.SOL UDC PO PRN (08:12)
[2020-02-13] MEDS: metFORMIN 500 MG TABLET PO SCH (08:12)
[2020-02-13] MEDS: NEOSPORIN OINT, 15GM TP SCH (08:13)
[2020-02-13] MEDS: SENNA/DOCUSATE TABLET PO SCH (08:13)
[2020-02-13 12:04] VITALS: BP 131/64
== END 2020-02-13 14:23 | disposition left against medical advice (07) | DRG 603 ==
LOC: ED 15:21 → EDIP 17:15 → 3N 19:15
PROVIDERS: ADMIT Hospitalist; ATTEND Hospitalist
PROC: 0CDWXZ0 Extraction of Upper Tooth, Single, External Approach (ICD-10-PCS; principal; 2020-02-11 12:30)
DX: L02.811 Cutaneous abscess of head [any part, except face] (principal); J44.9 Chronic obstructive pulmonary disease, unspecified; L03.213 Periorbital cellulitis; E87.6 Hypokalemia; E11.65 Type 2 diabetes mellitus with hyperglycemia; F15.10 Other stimulant abuse, uncomplicated; K02.9 Dental caries, unspecified; B95.62 Methicillin resistant Staphylococcus aureus infection as the cause of diseases classified elsewhere; F17.210 Nicotine dependence, cigarettes, uncomplicated; Z91.19 Patient's noncompliance with other medical treatment and regimen; Z90.49 Acquired absence of other specified parts of digestive tract; Z79.899 Other long term (current) drug therapy; Z79.82 Long term (current) use of aspirin; Z79.84 Long term (current) use of oral hypoglycemic drugs; Z88.2 Allergy status to sulfonamides; Z91.14 Patient's other noncompliance with medication regimen; Z79.4 Long term (current) use of insulin
CPT/HCPCS: 36415; 70100; 96374; 99285; J3490; 70487; 80048; 80202; 80307; 82040; 83036; 83605; 85025; 85651; 86140; 87015; 87040; 87070; 87075; 87077; 87102; 87116; 87147; 87186; 87205; 87206; G0378; J0696; J1100; J1644; J1885; J2250; J2405; J2543; J2704; J3010; J3370; J3480; Q9967; J0330; J7050

== ENCOUNTER 2020-03-08 16:37 | Emergency (ER) | payer MEDICAID ==
[~2020-03-08] VITALS: Ht 175.3 cm; Wt 84.8 kg
[2020-03-08 16:39] VITALS: BP 124/63
== END 2020-03-08 18:31 | disposition home or self-care (01) ==
LOC: ED 17:25
DX: H44.001 Unspecified purulent endophthalmitis, right eye (principal); H05.011 Cellulitis of right orbit; E11.9 Type 2 diabetes mellitus without complications; J43.9 Emphysema, unspecified
CPT/HCPCS: 99283

== ENCOUNTER 2020-05-25 01:44 | Emergency (ER) | payer MEDICAID ==
[~2020-05-25] VITALS: Ht 175.3 cm; Wt 86.0 kg
[2020-05-25 01:51] VITALS: BP 113/83
[2020-05-25 03:20] LABS: BASOPHILS # (AUTO) 0.05 x10^3/uL (0-0.1); BASOPHILS % (AUTO) 1 % (0-1); EOSINOPHILS # (AUTO) 0.29 x10^3/uL (0-0.4); EOSINOPHILS % (AUTO) 3 % (1-7); LYMPHOCYTES # (AUTO) 1.98 x10^3/uL (1-3.4); LYMPHOCYTES % (AUTO) 22 % (22-44); MD NO; MEAN CORPUSCULAR HEMOGLOBIN 29.1 pg (27.0-34.8); MEAN CORPUSCULAR HGB CONC 33.3 g/dL (32.4-35.8); MEAN CORPUSCULAR VOLUME 87.3 fL (80-100); MEAN PLATELET VOLUME 8.4 fL (7.4-10.4); MONOCYTES % (AUTO) 4 % (2-9); NEUTROPHILS # (AUTO) 6.25 x10^3/uL (1.8-6.8); NEUTROPHILS % (AUTO) 70 % (42-75); PLATELET COUNT 239 x10^3/uL (130-400); RED BLOOD COUNT 4.88 x10^6/uL (3.82-5.3); RED CELL DISTRIBUTION WIDTH 12.2 % (9.6-15.2)
[2020-05-25 03:28] LABS: ALBUMIN 3.6 g/dL (3.4-5.0); ANION GAP 7 mmol/L (5-15); CALCIUM 8.9 mg/dL (8.5-10.1); CHLORIDE 106 mmol/L (98-107); CREATININE 0.72 mg/dL (0.55-1.02)
== END 2020-05-25 03:54 | disposition home or self-care (01) ==
LOC: ED 03:45
DX: L03.811 Cellulitis of head [any part, except face] (principal); F15.129 Other stimulant abuse with intoxication, unspecified; J44.9 Chronic obstructive pulmonary disease, unspecified; E11.9 Type 2 diabetes mellitus without complications; F17.210 Nicotine dependence, cigarettes, uncomplicated
CPT/HCPCS: 36415; 80048; 82040; 85025; 99283; 99406

== ENCOUNTER 2021-04-28 04:28 | Emergency (ER) | payer MEDICAID ==
[~2021-04-28] VITALS: Ht 175.3 cm; Wt 85.0 kg
[~2021-04-28 04:28] MED LIST changes: +ASPI-1026 PO; -ASPI-515 PO; -ASPI-650 PO; +ASPI-963 PO; +HYDR-2214 PO; -HYDR-3240 PO
--- NOTE | 2021-04-28 04:47 | NUR ---
PT CAME NTO ED THIS AM WITH A ASSISTANT ACCOUNT MANAGER SOB WORSENING OVER THE LAST 8 DAYS, REPORTS HISTORY OF COPD AND STATES THAT "THIS SMOKE AND EVERYTHING IS JUST MAKING IT WORSE." PT ALSO C/O WOUND ON RIGHT GREAT TOE JOINT FOR THE LAST 7 DAYS. PT PLACED ON SPO2/BP/ECG MONITORING AT THIS TIME. BED IN LOWEST, RAILS ENGAGED, CALL LIGHT ON LAP, WCTM.
--- NOTE | 2021-04-28 04:57 | NUR ---
Report to Bigg HINDS, pt care transferred at this time
[2021-04-28 05:57] LABS: BASOPHILS % (AUTO) 1 % (0-1); EOSINOPHILS % (AUTO) 4 % (1-7); LYMPHOCYTES % (AUTO) 29 % (22-44); MEAN CORPUSCULAR HEMOGLOBIN 29.3 pg (27.0-34.8); MEAN CORPUSCULAR HGB CONC 33.8 g/dL (32.4-35.8); MEAN PLATELET VOLUME 8.7 fL (7.4-10.4); MONOCYTES % (AUTO) 7 % (2-9); NEUTROPHILS % (AUTO) 60 % (42-75); PLATELET COUNT 310 x10^3/uL (130-400); RED BLOOD COUNT 5.76 x10^6/uL (3.82-5.3); RED CELL DISTRIBUTION WIDTH 12.7 % (9.6-15.2)
--- NOTE | 2021-04-28 05:59 | NUR ---
Aiken and pillow given for pt comfort, denies any other needs at this time. VSS
[2021-04-28 06:00] LABS: ALANINE AMINOTRANSFERASE 35 U/L (12-78); ALBUMIN 3.8 g/dL (3.4-5.0); ANION GAP 3 mmol/L (5-15); CALCIUM 9.8 mg/dL (8.5-10.1); CHLORIDE 104 mmol/L (98-107); CREATININE 0.69 mg/dL (0.55-1.02)
[2021-04-28 06:02] LABS: ALKALINE PHOSPHATASE 131 U/L (45-117); BILIRUBIN,TOTAL 0.9 mg/dL (0.2-1.0); TOTAL PROTEIN 8.1 g/dL (6.4-8.2)
--- NOTE | 2021-04-28 06:40 | NUR ---
water given per pt request, updated pt. no other needs at this time. VSS
--- NOTE | 2021-04-28 06:52 | NUR ---
GAVE REPORT TO SHIVA HINDS. TRANSFER OF CARE.
--- NOTE | 2021-04-28 06:52 | NUR ---
SBAR RECEIVED ON PT, REQUIRES COVID TEST.
[2021-04-28 06:58] VITALS: BP 101/55
--- NOTE | 2021-04-28 07:00 | NUR ---
PT UP TO BATHROOM BACK W/O INCIDENT, STABLE GAIT. COVID SAMPLE COLLECTED AND WALKED TO LAB. VSS, NADN,CALL LIGHT W/IN REACH.
--- NOTE | 2021-04-28 07:36 | NUR ---
Patient given discharge instructions and they have confirmed that they understand the instructions. Patient ambulatory with steady gait.
== END 2021-04-28 07:37 | disposition home or self-care (01) ==
LOC: ED 05:19
DX: J44.1 Chronic obstructive pulmonary disease with (acute) exacerbation (principal); E11.9 Type 2 diabetes mellitus without complications; Z20.822 Contact with and (suspected) exposure to COVID-19; F17.210 Nicotine dependence, cigarettes, uncomplicated
CPT/HCPCS: 36415; 71045; 80053; 85025; 93005; 99285; 99406; U0003; U0005